=== PATIENT | male | born 1985 ===

== ENCOUNTER 2025-06-14 17:59 | Observation (INO) | payer OTHER ==
[~2025-06-14] VITALS: Ht 175.3 cm; Wt 87.0 kg
--- NOTE | 2025-06-14 18:17 | NUR ---
DIRECT ADMIT: RECEIVED REPORT FROM MALIA DURAN FROM [facility]. PER RENEE, PT LEFT HINES AT APPROX. 1800. WILL REPORT TO NOC SHIFT RN WHO WILL RECEIVE PATIENT UPON ARRIVAL.
--- NOTE | 2025-06-14 19:41 | NUR ---
Arrival to unit Received report from Mike Kyle RN. Patient arrived later via EMS from [facility] for cardiac related issues @ 1930. Settled patient to room then called and notified provider of patient's arrival, Pam Valentino NP. Provider will come and see him soon. AOx4. Independent. Denies chest pain. Endorses chest tightness, however, states that it has improved drastically since voiding. EMS reported patient had 1600cc urine output enroute and that patient denies chest pain. VSS. Afebrile.
[2025-06-14 19:50] VITALS: BP 122/84
[2025-06-14] MEDS ORDERED: Albuterol HFA200 ACT/6.7 GM INH INH PRN (21:15)
[2025-06-14] MEDS ORDERED: Polyethylene Glycol 3350 17 gm PO ONE (22:00)
[2025-06-14] MEDS ORDERED: Polyethylene Glycol 3350 17 gm PO PRN (22:00)
[2025-06-14 22:01] LABS: Magnesium, Blood 1.7 mg/dL (1.6-2.4); Thyroid Stimulating Hormone 3.46 uIU/mL (0.360-4.800)
[2025-06-14] MEDS ORDERED: ALBU90OI INH (22:37)
[2025-06-14] MEDS ORDERED: ALBU2.5V5 INH (22:37)
[2025-06-14] MEDS ORDERED: CARV3.125 PO (22:40)
[2025-06-14] MEDS ORDERED: FURO40 PO (22:40)
[2025-06-14] MEDS ORDERED: K-TAB ER20 ME2 PO (22:41)
[2025-06-14 23:06] VITALS: BP 121/79
[2025-06-15] VITALS (7 sets, daily range): BP systolic 101–125; BP diastolic 67–91
[2025-06-15] MEDS ORDERED: Albuterol 2.5 MG/3 ML VIAL INH PRN (01:35)
[2025-06-15 05:11] LABS: BASOPHILS ABSOLUTE AUTO 0.03 K/mm3 (0.00-0.23); BASOPHILS PERCENT AUTO 0 % (0-2); EOSINOPHILS ABSOLUTE AUTO 0.27 K/mm3 (0.00-0.68); EOSINOPHILS PERCENT AUTO 3 % (0-6); Hematocrit 44.4 % (37.0-53.0); Hemoglobin 14.6 g/dL (13.5-17.5); IMMATURE GRAN ABSOLUTE AUTO 0.02 K/mm3 (0.00-0.10); IMMATURE GRAN PERCENT AUTO 0 % (0-1); LYMPHOCYTES ABSOLUTE AUTO 2.10 K/mm3 (0.84-5.20); LYMPHOCYTES PERCENT AUTO 26 % (21-46); MONOCYTES ABSOLUTE AUTO 0.61 K/mm3 (0.16-1.47); MONOCYTES PERCENT AUTO 8 % (4-13); Mean Corpuscular HGB Conc 32.9 g/dL (31.5-36.5); Mean Corpuscular Volume 86 fL (80-100); NEUTROPHILS ABSOLUTE AUTO 5.13 K/mm3 (1.96-9.15); NEUTROPHILS PERCENT AUTO 63 % (41-73); NRBC ABSOLUTE 0.00 K/mm3 (0.00-0.02); NRBC Auto 0.0 /100 WBC (0.0-0.2); Platelet Count 295 K/mm3 (150-400); RDW Coefficient Variation 13.1 % (11.7-14.2); RDW Standard Deviation 41.1 fL (35.1-46.3)
--- NOTE | 2025-06-15 05:24 | NUR ---
Shift Summary Dr. Axel Butterfield arrived to the bedside shortly after this RN spoke with Dr. Pam Valentino to admit, review notes, and assess patient. Pt denies chest pain, but still endorsing mild tolerable chest pressure across the chest. AOx4. Tele: ST 102. Ad harshal in the room. Receiving IV furosemide and voiding good. Plan for ECHO in the AM. Offered nicotine patch, pt decline. SCDs in place. Bed in lowest position. Call light in reach.
[2025-06-15 05:51] LABS: Alanine Aminotransfer (ALT/SGP 51.0 U/L (12-78); Albumin, Blood 2.8 g/dL (3.4-5.0); Albumin/Globulin Ratio 0.8 (0.8-1.8); Anion Gap 9.0 mmol/L (3-11); Aspartate Aminotrans (AST/SGOT 25.0 U/L (12-37); Bilirubin, Total 0.7 mg/dL (0.1-1.0); Blood Urea Nitrogen 15.0 mg/dL (8-24); CO2, Blood 29.0 mmol/L (21-32); Calcium, Blood 8.7 mg/dL (8.5-10.1); Chloride, Blood 105.0 mmol/L (98-108); Creatinine, Blood 1.04 mg/dL (0.60-1.20); Globulin, Blood 3.5 g/dL (2.2-4.0); Glucose, Blood 168.0 mg/dL (70-99); Potassium, Blood 3.3 mmol/L (3.5-5.5); Sodium, Blood 140.0 mmol/L (136-145); Total Protein, Blood 6.3 g/dL (6.4-8.2)
[2025-06-15] MEDS ORDERED: Polyethylene Glycol 3350 17 gm PO PRN (07:25)
--- NOTE | 2025-06-15 07:52 | NUR ---
ASSUMPTION OF CARE: THIS RN ASSUMED CARE OF PATIENT. ASLEEP DURING SHIFT CHANGE REPORT. LYING IN BED. BREATHING EVEN AND UNLABORED c ROOM AIR. MOST RECENT TELE STRIP READS SITTING UP IN BED / CHAIR c HOB ELEVATED. BREATHING EVEN AND UNLABORED c ROOM AIR / LPM/NCErna RABAGO. MOST RECENT TELE STRIP IN CHART REVIEWED BY THIS RN AND READS SINUS @ 92bpm. BED IN LOWEST POSITION. CALL LIGHT WITHIN REACH. ACUTE NEEDS MET.
[2025-06-15] MEDS ORDERED: Enoxaparin 40 MG/0.4 ML SYR SC SCH (09:00)
--- NOTE | 2025-06-15 13:39 | NUR ---
CALL FROM JOSE M CHACKO IN CT TO DISCUSS CARDIAC ANGIO: 1. PT MUST HAVE < 70. CONFIRMED WITH MANAGER CONTACT: PT'S HR HAS NOT BEEN BELOW 92 SINCE ADMIT. 2. PT MUST BE NICOTINE AND CAFFEINE-FREE x24 HOURS PT SMOKED PRIOR TO COMING TO HOSPITAL YESTERDAY AND IS, AT BEST, 20-HOURS NICOTINE-FREE. PT HAD PEPSI WITH LUNCH. 3. PT MUST BE NPO x6 HOURS. PT HAS BEEN EATING ALL DAY. 4. MUST BE ABLE TO CONFIRM LACK OF PACEMAKER, CARDIAC STENDS OR OTHER INTRACARDIAC DEVICE. CONFIRMED WITH PATIENT, NONE OF THESE ARE PRESENT. SPOKE c DR RUTHERFORD WHO HAS ADDED CARVEDILOL. PT TO NO LONGER HAVE CAFFEIENE AND WILL NEED TO BE NPO AFTER 0800 TOMORROW. ANTICIPATE PROCEDURE TOMORROW AFTERNOON IF HR < 70. BEDSIDE NURSE WILL NEED TO BE AVAILABLE TO ATTEND PROCEDURE c PATIENT, WHICH TAKES 5-10 MINUTES. NEED 20G OR HIGH IN AC OR HIGHER.
[2025-06-15 13:40] LABS: CHOL/HDL RATIO 5.4; Cholesterol 177 mg/dL (50-200); HDL Cholesterol 33 mg/dL (>39); LDL/HDL RATIO 2.7; Low Density Lipoprotein Chol 89 mg/dL (0-110); Triglycerides 273 mg/dL (30-160); Very Low Density Lipoprot Chol 54 mg/dL (6-32)
--- NOTE | 2025-06-15 19:52 | NUR ---
END OF SHIFT SUMMARY: A&Ox4. PLEASANT AND COOPERATIVE WITH CARE. CALLS APPROPRIATELY AND IS ABLE TO ADVOCATE NEEDS EFFECTIVELY. CONTINENT OF BOWEL AND BLADDER; LBM TODAY. AMBULATES INDEPENDENTLY. TAKES MEDS WHOLE c FLUIDS. NO C / O PAIN OR DISCOMFORT. TELE RUNNING SINUS/SINUS ABDOUL. BPs STILL ELEVATED. GF @ BEDSIDE ALL DAY. PER DR STANLYE: CHANGE LOVENOX INJECTION TO PO ANTI COAG PER PT PREFERENCE OF FEWER NEEDLESTICKS. ECHO COMPLETED: SHOWS EF 20-25%. CARDIOLOGY CONSULTED: ADDED ENTRESTO AND CARVEDILOL AND CARDIAC CT TOMORROW AFTERNOON (TIME TBD): NO CAFFEINE, NICOTINE OR CHOCOLATE UNTIL AFTER PROCEDURE. NPO AFTER 0800 ON 06/16/25. MUST HAVE PIV 20g IN AC OR HIGHER. HR MUST BE < 70. BEDSIDE NURSE WILL NEED TO ACCOMPANY PATIENT TO PROCEDURE WHICH TAKES 5-15 MINUTES. UDS AND A1C PENDING. MORNING LABS ORDERED. BED IN LOWEST POSITION, CALL LIGHT WITHIN REACH, ALL NEEDS MET. REPORT TO ONCOMING NURSE.
[2025-06-15 20:30] LABS: U Amphetamine Screen DETECTED; U Barbituate Screen Not Detected; U Benzodiazapine Screen Not Detected; U Buprenorphine Screen Not Detected; U Cannabinoids Screen DETECTED; U Cocaine Screen Not Detected; U Methadone Screen Not Detected; U Methamphetamine Screen DETECTED; U Opiates Screen Not Detected; U Oxycodone Screen Not Detected; U Phencyclidine Screen Not Detected
[2025-06-16 04:28] VITALS: BP 109/81
[2025-06-16 05:13] LABS: Hematocrit 48.7 % (37.0-53.0); Hemoglobin 16.3 g/dL (13.5-17.5); Mean Corpuscular HGB Conc 33.5 g/dL (31.5-36.5); Mean Corpuscular Volume 86 fL (80-100); NRBC ABSOLUTE 0.00 K/mm3 (0.00-0.02); NRBC Auto 0.0 /100 WBC (0.0-0.2); Platelet Count 314 K/mm3 (150-400); RDW Coefficient Variation 13.2 % (11.7-14.2); RDW Standard Deviation 40.9 fL (35.1-46.3)
[2025-06-16 05:34] VITALS: BP 119/87
[2025-06-16 06:14] LABS: Albumin, Blood 2.9 g/dL (3.4-5.0); Anion Gap 9 mmol/L (3-11); Blood Urea Nitrogen 16 mg/dL (8-24); CO2, Blood 24 mmol/L (21-32); Calcium, Blood 8.9 mg/dL (8.5-10.1); Chloride, Blood 109 mmol/L (98-108); Creatinine, Blood 0.99 mg/dL (0.60-1.20); Glucose, Blood 108 mg/dL (70-99); Magnesium, Blood 2.0 mg/dL (1.6-2.4); Phosphorus, Blood 2.9 mg/dL (2.5-4.9); Potassium, Blood 4.4 mmol/L (3.5-5.5); Sodium, Blood 138 mmol/L (136-145)
--- NOTE | 2025-06-16 06:46 | NUR ---
SHIFT SUMMARY AT START OF SHIFT, PT COMPLAINING OF PAIN AT IV SITE. IV REMOVED, D/T PAIN AND PT NEEDING IV AT AC OR HIGHER FOR IMAGING IN AM. PT TOOK SHOWER, THEN NEW IV PLACED. 18G PLACED IN LEFT UPPER ARM. PT TOLLERATED WELL. PT FIANCEE AT BEDSIDE AND STAYING THE NIGHT WITH HIM. PT WAS POSITIVE FOR AMPHETAMINE WELL METHAMPHETAMINE. DISCUSSED WITH PT WHO STATED HE HAD RELAPSED OVER THE LAST WEEK AND A HALF. EDUCATED PT ON ADDICTION RECOVERY. THANKED PT FOR HIS HONESTY, AND EXPLAINED TO HIM THE IMPORTANCE OF BEING FORTHCOMING WITH THIS INFORMATION IN THE FUTURE, SO HIS TREATMENT PLAN CAN BE FORMULATED APPROPRIATELY. PT EXPRESSED UNDERSTANDING AND STATED THIS IS NOT SOMETHING HE DOES REGULARLY, AND HE FEELS ASHAMED. EXPLAINED AGAIN HOW RECOVERY IS DIFFERENT FOR EVERYONE. OFFERED HELP FOR PT. HE STATED HE D THINK ABOUT IT. 0530, PT COMPLAINED OF CHEST PAIN. LEFT SIDE, JUST BELOW NIPPLE LINE. EKG DETERMINED SINUS TACH, CONFIRMED BY RECREATIONAL LEADER AND THIS RN WELL BRAND AMBASSADOR. PAIN ABLE TO BE REPRODUCED WITH CHEST EXPANSION. DOCTOR NOTIFIED OF EKG RESULTS. PT STATED PAIN HAS SUBSIDED AND IS NOW RESTING PEACEFULLY. HOSPITALIST GAVE PENDING ORDER FOR TROPONIN LAB DRAW IF CHEST PAIN RETURNS.
[2025-06-16 08:08] VITALS: BP 115/88
[2025-06-16] MEDS ORDERED: Polyethylene Glycol 3350 17 gm PO PRN (09:00)
[2025-06-16 11:52] VITALS: BP 106/69
[2025-06-16] MEDS ORDERED: JARDIANCE10 MG PO (12:48)
[2025-06-16] MEDS ORDERED: ENTRESTO 24 MG1 EACH PO (12:48)
[2025-06-16] MEDS ORDERED: ALDACTONE25 MG PO (12:49)
--- NOTE | 2025-06-16 16:13 | NUR ---
DISCHARGE SUMMARY CLIENT IS AOX4 WITH CONCRETE THINKING. MEDICATION COMPLIANT. CLIENT CONTIUNED ON TELE. RHYTHM STRIP FROM 705 SHOWED SINUS TACH @ 104. CT ANGIO CANCELED. CLIENT INFORMED THAT HE WOULD BE DISCHARGING. CLIENT GOT INTO ARGUEMENT WITH SIG OTHER AND LEFT THE REICH. WHEN ASKED, THE CLIENT STATED HE WOULD BE RETURNING. AFTER ABOUT AN HOUR, CLIENT'S SIG OTHER ALSO LEFT. WHEN ASKED, SHE STATED HE WAS NOT TAKING HER CALLS, BUT WOULD BE RETURNING TO COMPLETE THE DISCHARGE PROCESS. A FEW HOURS AFTER THAT, A CALL WAS RECIEVED FROM THE ED AT [facility] STATING THAT THE CLIENT HAD PRESENTED TO HAVE HIS IV REMOVED AND TURN IN HIS TELE BOX. THE ED STATED THEY WOULD MAIL THE TELE BOX BACK TO [facility]. DISCHARGE PACKET WAS COMPLETED. MEDICATION LIST WAS NOT FAXED TO A PHARMACY, THE CLIENT DID NOT ANSWER HIS PHONE, OR RETURN THE CALL TO VERIFY HIS CHOICE OF PHARMACIES. MULTIPLE ATTEMPTS WERE MADE TO CONTACT CLIENT.
== END 2025-06-16 14:55 | disposition home or self-care (01) ==
LOC: MEDS 17:59
PROVIDERS: Internal Medicine; Registered Nurse; Student in an Organized Health Care Education/Training Program; ADMIT Internal Medicine
DX: I50.21 Acute systolic (congestive) heart failure (principal); I42.0 Dilated cardiomyopathy; I34.0 Nonrheumatic mitral (valve) insufficiency; J45.20 Mild intermittent asthma, uncomplicated; F12.20 Cannabis dependence, uncomplicated; F15.21 Other stimulant dependence, in remission; Z87.891 Personal history of nicotine dependence; Z79.899 Other long term (current) drug therapy
CPT/HCPCS: 36415; 80053; 80061; 80069; 83036; 83735; 83880; 84443; 84484; 85025; 85027; 94760; 96374; 96376; A9270; C8929; G0378; G0379; J1938; Q9957